=== PATIENT | female | born 1965 | race Caucasian/White ===

== ENCOUNTER → 2018-07-21 | Outpatient (CLI) | payer BC | LOC: M.ULTRA 07-17 09:00 | DX: R10.11 Right upper quadrant pain (principal) ==

== ENCOUNTER → 2019-02-22 | Outpatient (CLI) | payer BC ==
[~2019-02-22] MED LIST: ASPIR 8181 MG PO; B12INJ IM; FISH OIL 1,001000 M2 PO; TYLENOL325 MG PO; ZINC30 M1 PO; ZOLOFT50 MG PO
== END ==
LOC: M.NUC 06:33
DX: R10.11 Right upper quadrant pain (principal); F32.9 Major depressive disorder, single episode, unspecified; Z88.2 Allergy status to sulfonamides; Z80.8 Family history of malignant neoplasm of other organs or systems; Z80.3 Family history of malignant neoplasm of breast

== ENCOUNTER → 2019-03-15 | Day surgery (SDC) | payer BC ==
--- NOTE | ~2019-03-15 | PROC ---
[address] [address] PROCEDURE REPORT Name: MIKO SAMANIEGO Room: [facility].#: [id number] Admission: 03/15/19 Attend Phys: Reinaldo Christian DO Discharge: Date of : 67 Report #: [id number] THIS REPORT FOR: //name// For GI report, please see the Provation report in [employer] content. By: 0646Medical Records Staff FRANCISCO /KETTY
--- NOTE | 2019-03-16 16:05 | PATH ---
[address] [address] PATHOLOGY RPT PROCEDURE Name: ADENMIKO TOLEDO Room: [facility].R.#: [id number] Admission: 03/15/19 Date of : 67 Discharge: Report #: [id number] Path Case #: [id number] [facility] Accession Number: [id number] . 01 Material submitted: . colon - PROXIMAL TRANSVERSE COLON POLYP. Modifiers: transverse, proximal . 01 Clinician provided ICD-10: Z12.11 . 01 Clinical history: . None provided . 02 Diagnosis: Proximal transverse colon polyp: - Tubular adenoma, negative for high grade dysplasia. . (LINH:mml; 03/16/2019) QLM/03/16/2019 . 02 Electronically signed: . Romario Escalona MD, Pathologist NPI- [id number] . 01 Gross description: . Received in formalin labeled "Miko Lucero, proximal transverse colon polyp," is a single segment of gayle soft tissue measuring 0.5 cm in maximum dimension. The specimen is entirely submitted in cassette A1. (TSD; 03/15/2019) TOB/TOB . 02 Pathologist provided ICD-10: D12.3 . 02 CPT . [id number] Specimen Comment: A courtesy copy of this report has been sent to Specimen Comment: [phone], , . Specimen Comment: Report sent to ,DR MIRANDA / DR PINEDA Performed at: [address], [place], [place] [id number] MD Abraham Mayfield MD Phone: [phone] Performed at: [facility] [address], [place], [place] [id number] MD Romario Escalona MD Phone: [phone]
== END | disposition home or self-care (01) ==
LOC: M.SUR 08:48
DX: Z12.11 Encounter for screening for malignant neoplasm of colon (principal); D12.3 Benign neoplasm of transverse colon; F32.9 Major depressive disorder, single episode, unspecified; E66.01 Morbid (severe) obesity due to excess calories; Z88.2 Allergy status to sulfonamides; Z98.890 Other specified postprocedural states; Z87.891 Personal history of nicotine dependence; Z79.899 Other long term (current) drug therapy; Z79.82 Long term (current) use of aspirin

== ENCOUNTER → 2020-10-09 | Outpatient (CLI) | payer OTHER ==
[~2020-10-09] MED LIST changes: +MELOXICAM15 MG PO; +MULTI-VITAMIN1 EAC5 PO
== END ==
LOC: M.PC 08:39
PROVIDERS: ATTEND Physical Medicine & Rehabilitation
DX: M54.5 Low back pain (principal); G89.29 Other chronic pain; M51.36 Other intervertebral disc degeneration, lumbar region; M47.816 Spondylosis without myelopathy or radiculopathy, lumbar region; M17.12 Unilateral primary osteoarthritis, left knee